=== PATIENT | female | born 2000 | race Two or more races ===

== ENCOUNTER 2022-08-26 22:14 | Emergency (ER) | payer OTHER ==
[~2022-08-26] VITALS: Ht 157.5 cm; Wt 60.0 kg
[2022-08-27] MEDS ORDERED: TETANUS-DIPTH-ACEL PERTUSSIS 0.5ML SYR Tdap IM ONE (02:30)
[2022-08-27] MEDS ORDERED: LIDOCAINE 1% HCL (LOCAL ANESTH.) INJ 20ML MDV ID ONE (02:45)
[2022-08-27] MEDS ORDERED: AMOX500T86 PO (04:44)
[2022-08-27 05:15] VITALS: BP 106/55
== END 2022-08-27 05:33 | disposition home or self-care (01) ==
LOC: ER 22:14 → EDBD 22:14 → ER 08-27 05:33
DX: S01.511A Laceration without foreign body of lip, initial encounter (principal); S01.551A Open bite of lip, initial encounter; Z79.2 Long term (current) use of antibiotics; W54.0XXA Bitten by dog, initial encounter; Y93.89 Activity, other specified; Y92.89 Other specified places as the place of occurrence of the external cause; Y99.8 Other external cause status
CPT/HCPCS: 12015; 90471; 90715; 99283; J2001